=== PATIENT | female | born 1970 | race Caucasian/White ===

== ENCOUNTER → 2016-12-26 | Outpatient (CLI) | payer MEDICARE | LOC: LAB 15:26 | DX: N39.0 Urinary tract infection, site not specified (principal) ==

== ENCOUNTER → 2016-12-29 | Outpatient (CLI) | payer MEDICARE ==
[2016-12-29 15:25] LABS: ALBUMIN 4.2 g/dL (3.5-5.0); BUN/CREATININE RATIO 18.1 (6.0-26.0); CALCIUM 9.6 mg/dL (8.4-10.2); TOTAL BILIRUBIN 0.6 mg/dL (0.2-1.3); TOTAL PROTEIN 8.5 g/dL (6.3-8.2)
[2016-12-29 15:28] LABS: HEMATOCRIT 53.2 % (37.0-47.0); HEMOGLOBIN 17.7 g/dL (12.5-16.0); MEAN CELL VOLUME 96 fl (78-100); MEAN CORPUSCULAR HEMOGLOBIN 32 pg (27-31); MEAN CORPUSCULAR HGB CONC 33 g/dL (33-37); MEAN PLATELET VOLUME 9.9 fl (7.4-10.4); PLATELET COUNT 205 K/mm3 (130-400); RED BLOOD COUNT 5.52 M/mm3 (4.10-5.30); WHITE BLOOD COUNT 5.5 K/mm3 (4.8-10.8)
[2016-12-29 17:15] LABS: BASO # 0.1 (0.02-0.10); EOS # 0.2 (0.04-0.40); EOS % 3.3 % (1.0-5.0); LYMPH# 2.2 (1.50-4.00); MONO # 0.8 (0.20-0.80); NEU # 2.3 (1.40-6.50)
[2016-12-29 17:33] LABS: LYMPHOCYTE 39 % (20-51); MONOCYTE 10 % (3-10); NEUTROPHILS 49 % (42-75)
== END ==
LOC: LAB 14:45
PROVIDERS: Nurse Practitioner Family
DX: I10 Essential (primary) hypertension (principal); G89.4 Chronic pain syndrome; E03.4 Atrophy of thyroid (acquired); N95.1 Menopausal and female climacteric states; G35 Multiple sclerosis

== ENCOUNTER 2017-02-13 13:19 | Emergency (ER) | payer MEDICARE ==
[~2017-02-13] VITALS: Ht 167.6 cm; Wt 90.0 kg
[2017-02-13] MEDS ORDERED: TOPROL XL 25MG25 MG (13:30)
[2017-02-13] MEDS ORDERED: SYNTHROID0.05 MG (13:30)
[2017-02-13] MEDS ORDERED: DOLOPHINE HCL10 MG PO (13:30)
[2017-02-13] MEDS ORDERED: CYCLOBENZAPRINE10 M1 PO (14:40)
[2017-02-13 15:18] VITALS: BP 117/74
== END 2017-02-13 15:14 | disposition home or self-care (01) ==
LOC: ED 13:19
DX: S80.01XA Contusion of right knee, initial encounter (principal); S40.011A Contusion of right shoulder, initial encounter; S80.12XA Contusion of left lower leg, initial encounter; W10.8XXA Fall (on) (from) other stairs and steps, initial encounter; Y92.008 Other place in unspecified non-institutional (private) residence as the place of occurrence of the external cause; S16.1XXA Strain of muscle, fascia and tendon at neck level, initial encounter; I10 Essential (primary) hypertension; E03.9 Hypothyroidism, unspecified; G35 Multiple sclerosis; Z88.2 Allergy status to sulfonamides

== ENCOUNTER → 2017-06-11 | Outpatient (CLI) | payer MEDICARE ==
[~2017-06-11] MED LIST: CYCLOBENZAPRINE10 M1 PO; DOLOPHINE HCL10 MG PO; SYNTHROID0.05 MG; TOPROL XL 25MG25 MG
[2017-06-11 18:23] LABS: ALBUMIN 4.4 g/dL (3.5-5.0); BASO # 0.1 (0.02-0.10); BUN/CREATININE RATIO 19.7 (6.0-26.0); CALCIUM 9.6 mg/dL (8.4-10.2); EOS # 0.2 (0.04-0.40); EOS % 2.3 % (1.0-5.0); HEMATOCRIT 50.3 % (37.0-47.0); HEMOGLOBIN 17.1 g/dL (12.5-16.0); LYMPH# 2.3 (1.50-4.00); MEAN CELL VOLUME 95 fl (78-100); MEAN CORPUSCULAR HEMOGLOBIN 32 pg (27-31); MEAN CORPUSCULAR HGB CONC 34 g/dL (33-37); MONO # 0.9 (0.20-0.80); NEU # 3.9 (1.40-6.50); PLATELET COUNT 246 K/mm3 (130-400); POTASSIUM 4.5 mmol/L (3.6-5.0); RED BLOOD COUNT 5.28 M/mm3 (4.10-5.30); RED CELL DISTRIBUTION WIDTH 14.1 % (11.5-14.5); TOTAL BILIRUBIN 0.6 mg/dL (0.2-1.3); TOTAL PROTEIN 8.6 g/dL (6.3-8.2); WHITE BLOOD COUNT 7.3 K/mm3 (4.8-10.8)
== END ==
LOC: LAB 17:14
PROVIDERS: Nurse Practitioner Family
DX: G35 Multiple sclerosis (principal); R10.9 Unspecified abdominal pain; G89.4 Chronic pain syndrome; M62.838 Other muscle spasm; Z88.5 Allergy status to narcotic agent; Z88.2 Allergy status to sulfonamides